=== PATIENT | male | born 1980 | race Caucasian/White ===

== ENCOUNTER 2019-10-10 15:33 | Emergency (ER) | payer BC, OTHER ==
[~2019-10-10] VITALS: Ht 177.8 cm; Wt 64.6 kg
[~2019-10-10 15:33] MED LIST: ACET500T33 PO; CLIN150C14 PO; HYDR-3165 PO; IBUP400T18 PO; IBUP600T16 PO; IBUP800T19 PO
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
[2019-10-10 16:33] VITALS: BP 129/90
== END 2019-10-10 16:33 | disposition home or self-care (01) ==
LOC: ER 15:33
DX: S00.412A Abrasion of left ear, initial encounter (principal); Z03.818 Encounter for observation for suspected exposure to other biological agents ruled out; I10 Essential (primary) hypertension; Z88.5 Allergy status to narcotic agent; Z88.0 Allergy status to penicillin; Z88.2 Allergy status to sulfonamides; Y08.89XA Assault by other specified means, initial encounter; Y93.89 Activity, other specified; Y92.89 Other specified places as the place of occurrence of the external cause; Y99.8 Other external cause status
CPT/HCPCS: 99281

== ENCOUNTER 2019-12-27 17:08 | Emergency (ER) | payer BC ==
[~2019-12-27] VITALS: Ht 177.8 cm; Wt 64.6 kg
[2019-12-27] MEDS ORDERED: KETOROLAC 60 MG/2 ML VIAL. IM ONE (18:15)
--- NOTE | 2019-12-27 18:23 | PHYS DOC ---
Past History Past Medical History: Hypertension, Migraines Past Surgical History: Other Additional Past Surgical Histo: sinus; shoulder Alcohol Use: None Drug Use: None General Adult EDM: Chief Complaint: LOWER EXT PAIN HPI: HPI: ".. I hurt this Rt. knee awhile back.. I had X-ray.. they never told me if something is wrong..." Patient is a 39 year old male who presents with above hx and complaints of right knee pain. Patient complaining of still right knee pain and crepitation with movement. Patient reports knee seem to be more achy tonight. Patient decided to have it rechecked out. The patient follows with Dr. Cole Candelaria. No history of fever or chills. No history of immunosuppression. No history of reinjury. Is able to do straight leg lift. Does have relatively stable anterior and posterior cruciate ligaments. Patient is ambulatory with no marked limp.or guarding. Pt does have some tenderness of right lateral collateral l igament. Review of Systems: Review of Systems: Constitutional: Denies fever or chills Eyes: Denies change in visual acuity HENT: Denies nasal congestion or sore throat Respiratory: Denies cough or shortness of breath Cardiovascular: Denies chest pain or edema GI: Denies abdominal pain, nausea, vomiting, bloody stools or diarrhea : Denies dysuria Musculoskeletal: Complains of right knee pain Integument: Denies rash Neurologic: Denies headache, focal weakness or sensory changes Endocrine: Denies polyuria or polydipsia Lymphatic: Denies swollen glands Psychiatric: Denies depression or anxiety Heart Score: Risk Factors: Risk Factors: DM, Current or recent (<one month) smoker, HTN, HLP, family history of CAD, obesity. Risk Scores: Score 0 - 3: 2.5% MACE over next 6 weeks - Discharge Home Score 4 - 6: 20.3% MACE over next 6 weeks - Admit for Clinical Observation Score 7 - 10: 72.7% MACE over next 6 weeks - Early Invasive Strategies Current Medications: Current Meds: Current Medications Medications (Trade) Dose Ordered Sig/Elizabeth Start Time Stop Time Status Last Admin Dose Admin Ketorolac Tromethamine (Toradol Im) 60 mg 1X ONCE 12/27/19 18:15 12/27/19 18:16 DC Allergies: Allergies: Allergies Coded Allergies Type Severity Reaction Last Updated Verified hydrocodone Allergy Intermediate hives, sob 10/10/19 No Penicillins Allergy Unknown Hives 10/10/19 No Sulfa (Sulfonamide Antibiotics) Allergy Unknown Hives 10/10/19 No codeine Allergy Unknown Hives 10/10/19 Yes Physical Exam: PE: Constitutional: Well developed, well nourished, no acute distress, non-toxic appearance. [] HENT: Normocephalic, atraumatic, bilateral external ears normal, oropharynx moist, no oral exudates, nose normal. [] Eyes: PERRLA, EOMI, conjunctiva normal, no discharge. [] Neck: Normal range of motion, no tenderness, supple, no stridor. [] Cardiovascular:Heart rate regular rhythm, no murmur [] Lungs & Thorax: Bilateral breath sounds clear to auscultation [] Abdomen: Bowel sounds normal, soft, no tenderness, no masses, no pulsatile masses. [] Skin: Warm, dry, no erythema, no rash. [] Back: No tenderness, no CVA tenderness. [] Extremities: No tenderness, no cyanosis, no clubbing, ROM intact, no edema. [] Neurologic: Alert and oriented X 3, normal motor function, normal sensory function, no focal deficits noted. [] Psychologic: Affect normal, judgement normal, mood normal. [] Current Patient Data: Vital Signs: Vital Signs Date Time Temp Pulse Resp B/P (MAP) Pulse Ox O2 Delivery O2 Flow Rate FiO2 12/27/19 17:08 97.3 70 14 153/84 (107) 100 Room Air EKG: EKG: [] Radiology/Procedures: Radiology/Procedures: [][address] [address] IMAGING REPORT Signed PATIENT: TJ JACKSON NACCOUNT: [id number] : 1980 LOCATION: ER AGE: 39 SEX: M EXAM STATUS: REG ER ORD. PHYSICIAN: TIM GODINEZ MD REASON: injury PROCEDURE: KNEE RIGHT 4V EXAMINATION: KNEE RIGHT 4V CLINICAL HISTORY: Right knee pain following injury TECHNIQUE: KNEE RIGHT 4V Number of Images/Views: 4 COMPARISON: 12/23/2019 FINDINGS: Joint spaces and alignment maintained. No acute fracture. Small joint effusion. IMPRESSION: No acute osseous abnormality right knee. Electronically signed by: Austyn Wiley DO (12/27/2019 6:29 PM) [id number] DICTATED AND SIGNED BY: AUSTYN WILEY DO DATE: 12/27/19 1829 CC: TIM GODINEZ MD; COLE CANDELARIA MD ~ Course & Med Decision Making: Course & Med Decision Making Pertinent Labs and Imaging studies reviewed. (See chart for details) Patient take Tylenol and ibuprofen for pain. Patient wear Marvin wrap. Distal vascular intact after application of Marvin wrap. Patient follow-up with Dr. Candelaria. For marked pain may take Vicoprofen up to 4 times daily. Return if any concerns. Advised may need a MRI to evaluated soft tissues of Rt. . Impression: 1. Rt knee pain. [] Dragon Disclaimer: Dragon Disclaimer: This electronic medical record was generated, in whole or in part, using a voice recognition dictation system. Departure Departure: Disposition: 01 DC HOME SELF CARE/HOMELESS Condition: STABLE Referrals: COLE CANDELARIA MD (PCP) Scripts Hydrocodone/Ibuprofen (HYDROCODONE-IBUPROFEN 7.5-200 ) 1 Each Tablet 1 TAB PO PRN Q6HRS PRN for PAIN, #30 TAB 0 Refills Prov: TIM GODINEZ MD 12/27/19 [employer] Disclaimer This chart was dictated in whole or in part using Voice Recognition software in a busy, high-work load, and often noisy Emergency Department environment. It may contain unintended and wholly unrecognized errors or omissions. TIM GODINEZ MD Dec 27, 2019 18:23
[2019-12-27] MEDS ORDERED: HYDR-1179 PO (18:26)
--- NOTE | 2019-12-27 18:32 | RAD ---
EXAMINATION: KNEE RIGHT 4V CLINICAL HISTORY: Right knee pain following injury TECHNIQUE: KNEE RIGHT 4V Number of Images/Views: 4 COMPARISON: 12/23/2019 FINDINGS: Joint spaces and alignment maintained. No acute fracture. Small joint effusion. IMPRESSION: No acute osseous abnormality right knee. Electronically signed by: Austyn Molina DO (12/27/2019 6:29 PM) [id number]
[2019-12-27 18:55] VITALS: BP 142/80
== END 2019-12-27 19:00 | disposition home or self-care (01) ==
LOC: ER 17:08
DX: M25.561 Pain in right knee (principal); I10 Essential (primary) hypertension; G43.909 Migraine, unspecified, not intractable, without status migrainosus; Z88.5 Allergy status to narcotic agent; Z88.0 Allergy status to penicillin; Z88.2 Allergy status to sulfonamides
CPT/HCPCS: 73564; 96372; 99283; J1885

== ENCOUNTER 2020-08-29 11:25 | Emergency (ER) | payer BC ==
[~2020-08-29] VITALS: Ht 177.8 cm; Wt 63.6 kg
[~2020-08-29 11:25] MED LIST changes: -CLIN150C14 PO; +CLIN150C15 PO; +HYDR-1179 PO
--- NOTE | 2020-08-29 11:38 | PHYS DOC ---
Past History Past Medical History: Hypertension, Migraines Past Surgical History: Other Additional Past Surgical Histo: sinus; shoulder Alcohol Use: None Drug Use: None Adult General HPI HPI Patient is a 39-year-old male presenting for lower back pain. Has history of chronic low back pain, has had outpatient CAT scan in the past and has known L4- L5 bulging disc. Reports 4 days ago cleaning house and after bending over, started experiencing generalized lower back pain with some radiation down posterior right leg. No fever, weight loss, history of IV drug use, significant trauma, chronic steroid use, no motor or sensory or neurologic function changes, no bladder or bowel incontinence. Reports he has not taken anything in attempt to alleviate his symptoms, just tried heating pad without relief. He saw his chiropractor yesterday and had some soft tissue techniques and stretching performed with mild relief that was transient. Presenting today due to ongoing pain Review of Systems Review of Systems Fourteen body systems of review of systems have been reviewed. See HPI for pertinent positives and negative responses, other cortes all other systems are negative, non-pertinent or non-contributory Allergies Allergies Allergies Coded Allergies Type Severity Reaction Last Updated Verified hydrocodone Allergy Intermediate hives, sob 10/10/19 No Penicillins Allergy Unknown Hives 10/10/19 No Sulfa (Sulfonamide Antibiotics) Allergy Unknown Hives 10/10/19 No codeine Allergy Unknown Hives 10/10/19 Yes Physical Exam Physical Exam Constitutional: Well developed, well nourished, no acute distress, non-toxic appearance. HENT: Normocephalic, atraumatic, bilateral external ears normal, oropharynx moist, no oral exudates, nose normal. Eyes: PERRLA, EOMI, conjunctiva normal, no discharge. Neck: Normal range of motion, no tenderness, supple, no stridor. Cardiovascular: Heart rate regular, sinus rhythm, no murmurs rubs or gallops Lungs & Thorax: Bilateral breath sounds clear to auscultation Abdomen: Bowel sounds normal, soft, no tenderness, no masses, no pulsatile masses. Nonsurgical abdomen, no peritoneal signs Skin: Warm, dry, no erythema, no rash. Back: No tenderness, no CVA tenderness. Extremities: No tenderness, no cyanosis, no clubbing, ROM intact, no edema. Neurologic: Alert and oriented X 3, no saddle anesthesia, normal motor & sensory function, no focal deficits noted. Psychologic: Affect normal, judgement normal, mood normal. EKG EKG [] Radiology/Procedures Radiology/Procedures [] Heart Score C/O Chest Pain: No Risk Factors: Risk Factors: DM, Current or recent (<one month) smoker, HTN, HLP, family history of CAD, obesity. Risk Scores: Risk Factors: DM, Current or recent (<one month) smoker, HTN, HLP, family history of CAD, obesity. Course & Med Decision Making Course & Med Decision Making ABCs, history and physical examination non-concerning. There are no red flag signs of back pain present. I have low suspicion for malignancy/mets, acute Spinal Fracture, Vertebral Osteomyelitis, Epidural Abscess, Infected or Obstructing Kidney Stone. Their presentation appears most likely to be secondary to non-emergent musculoskeletal etiology vs non-emergent disc herniation. ED Workup: Defer imaging and labwork for outpatient follow up at this time. Patient deferred /rectal exam. Given IM muscle relaxer and pain medication with improvement in symptoms Disposition: Discharge with supportive care practices advised. Advised NSAID and Tylenol use for pain, heating and continued stretching with new prescription for muscle relaxers.. Strict return precautions discussed with patient with full understanding. Advised patient to follow up promptly with primary care provider Js Disclaimer Dragon Disclaimer This electronic medical record was generated, in whole or in part, using a voice recognition dictation system. Departure Departure: Impression: Primary Impression: Lower back pain Disposition: HOME / SELF CARE / HOMELESS Condition: STABLE Referrals: COLE BECK MD (PCP) Patient Instructions: Back Exercises, Generic, SportsMed Additional Instructions: You were evaluated in the Emergency Department today for back pain. Your evaluation suggests no acute abnormalities which require further intervention at this time. Your pain is most likely due to to a musculoskeletal cause that should improve with supportive care. - Move around as tolerated but avoiding heavy lifting. ``Bed rest is not recommended nor is it the best treatment for low back pain. - Medications will help control your discomfort: - -Ibuprofen (600-800 mg every 8 hours for pain) with food. - -Tylenol (500-650 mg every 8 hours for pain) - Do not drink alcohol, drive a car, operate machinery, or get up on ladders or heights when taking any prescribed pain medications. - Do not drive home if you received prescribed pain medications here in the ED. Return to the ED immediately if you develop any of the following problems: - Leaking urine or difficulty urinating; - Inability to control your bowels; - New numbness or weakness in your legs or numbness between your legs; - Inability to walk - Fever Scripts Cyclobenzaprine Hcl (CYCLOBENZAPRINE HCL) 10 Mg Tablet 1 TAB PO QHS for back pain/spasms, #15 TAB Prov: DUGLAS AVALOS DO 08/29/20 DUGLAS AVALOS DO Aug 29, 2020 11:38
[2020-08-29 11:41] VITALS: BP 165/97
[2020-08-29] MEDS ORDERED: CYCL-331 PO (11:55)
[2020-08-29] MEDS ORDERED: ORPHENADRINE CITRATE 60 MG/2 ML VIAL. IM ONE (12:00)
[2020-08-29] MEDS ORDERED: KETOROLAC 30 MG/ML VIAL. IM ONE (12:00)
== END 2020-08-29 12:50 | disposition home or self-care (01) ==
LOC: ER 11:25
DX: M54.5 Low back pain (principal); I10 Essential (primary) hypertension; Z88.0 Allergy status to penicillin; Z88.2 Allergy status to sulfonamides; Z88.6 Allergy status to analgesic agent
CPT/HCPCS: 96372; 99284; J1885; J2360